=== PATIENT | female | born 1955 | race Caucasian/White ===

== ENCOUNTER 2016-05-22 09:46 | Day surgery (SDC) | payer OTHER ==
[~2016-05-22] VITALS: Ht 167.6 cm; Wt 129.6 kg
[~2016-05-22 09:46] MED LIST: 0.9% Sodium Chloride 1,000 ML IV PRN; ASPI-628 PO; CALC500T61 PO; CETI10CA PO; CHOL200020 PO; LISI10TA PO; MULT-1018 PO; Sodium Chloride LOK Flush 10 mL Syringe IV PRN; ZIT250 PO; fentaNYL-PF 50 mCg/mL 2 mL Inj IVPUSH PRN
[2016-05-22 10:03] VITALS: BP 121/81; PULSE 78; RESP 14; O2SAT 96
[2016-05-22] MEDS ORDERED: 0.9% Sodium Chloride 1,000 ML IV ONE (10:16)
[2016-05-22 11:01] VITALS: BP 111/68; PULSE 67; RESP 14; O2SAT 97
[2016-05-22 11:10] VITALS: BP 106/69; PULSE 74; RESP 14; O2SAT 97
--- NOTE | 2016-05-22 11:35 | ENDO ---
[address] [address] ENDOSCOPY PROCEDURE PATIENT: MARCIO MOSQUEDA : 1955 MR#: [id number] ADMIT: 05/22/2016 JOB ID: [id number] DATE: 05/22/2016 PROCEDURE: Colonoscopy. INDICATION: The patient with a personal history of colon cancer. The patient's ASA classification is 2. Mallampati score is 2. MEDICATIONS: 1. Versed 2 mg. 2. Fentanyl 50 mcg. INSTRUMENT USED: PCF H 180 AL. PREPARATION QUALITY: Was fair. PROCEDURE DETAILS: After informed consent was obtained, the patient was brought into the GI suite after she was placed on oxygen via nasal cannula and monitored with continuous pulse oximeter, telemetry and blood pressure monitoring. A time-out was performed. Then, she was placed in the left lateral decubitus position and medications were administered for sedation. Digital rectal examination was performed, which was unremarkable. The colonoscope was then inserted into the rectum and advanced under direct visualization to the cecum, which was identified by the presence of the ileocecal valve and appendiceal orifice. Once the cecum was reached, the colonoscope was then withdrawn back into the rectum as the mucosa and lumen were examined. In the rectum, retroflexion was performed. Following retroflexion, remaining air in the rectum was suctioned and the procedure was completed. FINDINGS: 1. There was a diminutive polyp in the ascending colon that was removed with cold biopsy forceps. 2. At 40 cm there was evidence of a colo-colo anastomosis. There was a short blind limb that was traversed and appeared unremarkable. 3. Retroflexed views in the rectum were unremarkable. IMPRESSION: 1. Ascending colon polyp. 2. A colo-colo anastomosis at 40 cm. RECOMMENDATIONS: 1. Await repeat colonoscopy pending polyp pathology results. 2. Fiber rich diet. 3. Followup in GI clinic as needed. COMPLICATIONS: None. ESTIMATED BLOOD LOSS: Less than 5 mL.
--- NOTE | 2016-05-23 11:25 | PATH ---
SURGICAL PATHOLOGY Attending Physician:Claudia Jo CASE STATUS: Signed Out PATIENT NAME: MARCIO MOSQUEDA PID: [id number] : 1955 DATE COLLECTED:05/22/2016 17:05 SPECIMEN: Colon, Biopsy CLINICAL HISTORY: 1). ASCENDING POLYP X1 FINAL DIAGNOSIS: 1.ASCENDING COLON POLYP: TUBULAR ADENOMA. ICD10 CODE D12.2 GROSS DESCRIPTION: The specimen is received in one formalin filled container labeled with the patient's name, sublabeled "ascending polyp x1" and consists of 3 portions of tissue which aggregate to 0.3 x 0.3 x 0.2 CM. The specimen is entirely submitted in one cassette. 05/22/2016 [facility] MICRO DESCRIPTION: See diagnosis. ICD-9 CODES: CPT CODES: 1: 25378 Electronically Signed Out Mary Paredes MD [facility] Pathology [facility] [address], [place] [address] Technical component performed at [facility], [facility] [address], [place], [address]
== END 2016-05-22 23:59 | disposition home or self-care (01) ==
LOC: END 09:46
PROVIDERS: ATTEND Internal Medicine Gastroenterology
DX: D12.2 Benign neoplasm of ascending colon (principal); K63.89 Other specified diseases of intestine; I10 Essential (primary) hypertension; Z85.038 Personal history of other malignant neoplasm of large intestine; Z79.82 Long term (current) use of aspirin; Z79.899 Other long term (current) drug therapy
CPT/HCPCS: 45380; G0500; J2250; J3010; J7030

== ENCOUNTER → 2016-11-09 | Day surgery (SDC) | payer OTHER ==
[~2016-11-09] VITALS: Ht 165.1 cm; Wt 132.4 kg
[~2016-11-09] MED LIST changes: -0.9% Sodium Chloride 1,000 ML IV PRN; +0.9% Sodium Chloride 1,000 ML IV SCH; -ASPI-628 PO; +ASPI-973 PO; -CALC500T61 PO; +CALC600T12 PO; -CHOL200020 PO; +CHOL200047 PO; +LISI-571 PO; -LISI10TA PO; -ZIT250 PO
[2016-11-09 15:28] VITALS: BP 110/66; PULSE 77; RESP 16; O2SAT 97
[2016-11-09 16:27] VITALS: BP 104/69; PULSE 73; RESP 16; O2SAT 97
[2016-11-09 16:37] VITALS: BP 108/64; PULSE 65; RESP 16; O2SAT 92
--- NOTE | 2016-11-09 16:55 | ENDO ---
[address] [address] ENDOSCOPY PROCEDURE PATIENT: MARCIO MOSQUEDA : 1955 MR#: [id number] ADMIT: 11/09/2016 JOB ID: [id number] DATE OF SERVICE: 11/09/2016 PROCEDURE: Esophagogastroduodenoscopy. INDICATION: Melena. The patient's ASA classification was two. Mallampati score is two. MEDICATIONS: Versed at 5 mg, fentanyl 100 mcg. INSTRUMENT USED: GIFH-180J PROCEDURE DETAILS: After informed consent was obtained, the patient was brought into the GI suite, where she was placed on oxygen via nasal cannula and monitored with continuous pulse oximeter, telemetry, and blood pressure monitoring. A time-out was performed. Then, she was placed in a left lateral decubitus position. Medications were administered for sedation. A bite block was placed. The standard EGD scope was inserted through the bite block and advanced under direct visualization to the second portion of the duodenum without difficulty. FINDINGS: 1. GE junction was at approximately 41 cm. 2. 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 3. Normal-appearing pylorus, antrum and gastric body. 4. Normal-appearing duodenal bulb, first and second portion. 5. Multiple random biopsies were obtained throughout the duodenum as well as the stomach. IMPRESSION: 1. No findings to explain patient's melena. 2. 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 RECOMMENDATIONS: 1. Await biopsy results. 2. Follow up in GI clinic in 2-4 weeks. COMPLICATIONS: None. ESTIMATED BLOOD LOSS: Less than 5 mL cc: ALYSSA De Santiago
--- NOTE | 2016-11-15 16:19 | PATH ---
SURGICAL PATHOLOGY Attending Physician:Claudia Jo CASE STATUS: Signed Out PATIENT NAME: MARCIO MOSQUEDA PID: [id number] : 1955 DATE COLLECTED:11/09/2016 00:00 SPECIMEN: 1: Duodenum, Biopsy 2: Duodenum, Biopsy 3: Gastric, Biopsy CLINICAL HISTORY: 1). DUODENAL BIOPSY, RULE OUT H.PYLORI 2). DUODENAL NODULE BIOPSY 3). GASTRIC BIOPSY, RULE OUT H.PYLORI FINAL DIAGNOSIS: 1. Designated "Duodenum", Biopsy: Gastric body-type mucosa with chronic gastritis. Negative for Helicobacter organisms by immunohistochemistry. Negative for intestinal metaplasia, dysplasia or malignancy. 2. Duodenal Nodule, Biopsy: Focal active duodenitis. Negative for dysplasia or malignancy. 3. Designated "Gastric", Biopsy: Duodenal mucosa with no diagnostic abnormality. Negative for active inflammation, features of sprue, dysplasia or malignancy. ICD10: K92.1 GROSS DESCRIPTION: Received three formalin-filled containers, each labeled with the patient's name. 1. Received in formalin, labeled with the patient's name and "duodenal biopsy" is one fragment of franco soft tissue measuring 0.4 x 0.3 x 0.2 cm. The fragment is totally submitted in cassette 1A. 2. Received in formalin, labeled with the patient's name and "duodenal nodule biopsy" are two fragments of franco soft tissue ranging from 0.3 x 0.2 x 0.1 cm to 0.3 x 0.2 x 0.1 cm. The fragments are totally submitted in cassette 2A. 3. Received in formalin, labeled with the patient's name and "gastric biopsy" are three fragments of franco soft tissue ranging from 0.1 x 0.1 x 0.1 cm to 0.3 x 0.1 x 0.1 cm. The fragments are totally submitted in cassette 3A. (:[id number]) MICRO DESCRIPTION: Part 1: An immunohistochemical stain is performed to evaluate for Helicobacter organisms and is negative. A control stain shows appropriate reactivity. * This test was developed and its performance characteristics determined by [facility]. It has not been cleared or approved by the U.S. Food and Drug Administration. The FDA has determined that such clearance or approval is not necessary. This test is used for clinical purposes. It should not be regarded as investigational or for research. ICD-9 CODES: CPT CODES: 1: 39099, 17019 2: 76588 3: 21439 Electronically Signed Out Juan Daniel Sawant MD, Ph.D. [facility] [address], [place] [address] Technical component performed at [facility], [address], [place], [address]
== END ==
LOC: END 12:25
PROVIDERS: ATTEND Internal Medicine Gastroenterology
DX: K31.6 Fistula of stomach and duodenum (principal); K29.50 Unspecified chronic gastritis without bleeding; K29.80 Duodenitis without bleeding; K92.1 Melena; I10 Essential (primary) hypertension; Z79.82 Long term (current) use of aspirin; Z79.899 Other long term (current) drug therapy